=== PATIENT | female | born 1985 | race Caucasian/White ===

== ENCOUNTER 2018-10-17 07:59 | Inpatient (IN) | payer OTHER ==
[~2018-10-17] VITALS: Ht 167.6 cm; Wt 94.3 kg
[2018-10-17 08:46] VITALS: BP 177/105
[2018-10-17] MEDS ORDERED: PNV1TABL54 PO (08:52)
[2018-10-17] MEDS ORDERED: METHY250 PO (08:52)
[2018-10-17 08:59] LABS: BASOPHILS % (AUTO) 0.8 % (0.0-2.0); EOSINOPHILS % (AUTO) 2.1 % (1.0-6.0); HEMATOCRIT 29.8 % (36-46); HEMOGLOBIN 9.7 g/dL (12.0-16.0); LYMPHOCYTES # (AUTO) 2.1 K/uL (1.0-4.8); LYMPHOCYTES % (AUTO) 29.9 % (22.0-44.0); MEAN CORPUSCULAR HEMOGLOBIN 22.7 pg (26.0-34.0); MEAN CORPUSCULAR HGB CONC 32.7 G/dL (31.0-37.0); MEAN CORPUSCULAR VOLUME 70 fL (80-100); MONOCYTES # (AUTO) 0.5 K/uL (0.1-1.0); MONOCYTES % (AUTO) 6.6 % (2.0-9.0); NEUTROPHILS # (AUTO) 4.3 K/uL (1.8-7.7); NEUTROPHILS % (AUTO) 60.6 % (40.0-70.0); PLATELET COUNT (AUTO) 135 K/uL (150-450); RED BLOOD CELL COUNT(AUTO) 4.28 MIL/uL (4.00-5.20); RED CELL DISTRIBUTION WIDTH 18.3 % (11.5-14.5)
[2018-10-17 09:17] LABS: ALANINE AMINOTRANSFERASE 29 U/L (12-78); ALBUMIN 1.8 g/dL (3.4-5.0); ALKALINE PHOSPHATASE 160 U/L (46-116); ANION GAP 8 mmol/L (8-16); ASPARTATE AMINOTRANSFERASE 30 U/L (15-37); BILIRUBIN,TOTAL 0.3 mg/dL (0.1-1.0); CALCIUM, TOTAL 8.2 mg/dL (8.8-10.5); CARBON DIOXIDE 24 mmol/L (22-29); CHLORIDE 104 mmol/L (98-107); CREATININE 0.98 mg/dL (0.60-1.30); GLOMERULAR FILTR. RATE CALC > 60 mL/min (>60); GLUCOSE,RANDOM 76 mg/dL (70-110); SODIUM SERUM 136 mmol/L (136-145); TOTAL PROTEIN, SERUM 5.6 g/dL (6.4-8.2); UREA NITROGEN, BLOOD 17 mg/dL (7-18); URIC ACID 5.4 mg/dL (2.6-7.2)
[2018-10-17] MEDS ORDERED: RINGERS SOLUTION,LACTATED 1,000 ML IV PRN (10:05)
[2018-10-17] MEDS ORDERED: RINGERS SOLUTION,LACTATED 1,000 ML IV SCH (10:05)
[2018-10-17] MEDS ORDERED: OXYGEN THERAPY IH SCH ×4 (10:15→20:00)
[2018-10-17] MEDS ORDERED: METOCLOPRAMIDE HCL 5 MG/ML 2 ML VIAL IVP PRN (10:15)
[2018-10-17] MEDS ORDERED: CITRIC ACID/SODIUM CITRATE 30 ML SOLUTION UDCUP PO PRN (10:15)
[2018-10-17] MEDS ORDERED: BUPIVACAINE HCL/DEX-WATER/PF 0.75% 2 ML AMP ONE (11:55)
[2018-10-17] MEDS ORDERED: MORPHINE SULFATE/PF 0.5 MG/ML 10 ML AMP ONE (11:55)
[2018-10-17] MEDS ORDERED: ACETAMINOPHEN 1000 MG/ISO-OSM 100 ML IV ONE (11:55)
[2018-10-17] MEDS ORDERED: FentaNYL CITRATE-PF 100 MCG/2 ML VIAL ONE (11:55)
[2018-10-17] MEDS ORDERED: DiphenhydrAMINE HCL 50 MG/ML VIAL IVP PRN ×2 (12:45)
[2018-10-17] MEDS ORDERED: NALOXONE HCL 0.4 MG/ML VIAL IVP PRN (12:45)
[2018-10-17] MEDS ORDERED: MORPHINE SULFATE 10 MG/ML SYRINGE IVP PRN (12:45)
[2018-10-17] MEDS ORDERED: ONDANSETRON HCL 4 MG/2 ML VIAL IVP PRN ×2 (12:45)
[2018-10-17] MEDS ORDERED: FentaNYL CITRATE-PF 100 MCG/2 ML VIAL IVP PRN (12:45)
[2018-10-17] MEDS ORDERED: DEXAMETHASONE SOD PHOS 4 MG/ML VIAL IVP PRN (12:45)
[2018-10-17] MEDS ORDERED: NALBUPHINE HCL 10 MG/ML VIAL IVP PRN ×2 (12:45)
[2018-10-17] MEDS ORDERED: ACETAMINOPHEN/CODEINE 300-30 MG TABLET PO PRN (13:15)
[2018-10-17] MEDS ORDERED: LANOLIN 7 GM OINTMENT TP PRN (13:15)
[2018-10-17] MEDS ORDERED: CloNIDine HCL 0.1 MG TABLET PO ONE (17:15)
[2018-10-17] MEDS: DEXTROSE 5%-0.45% SODIUM CHL 1,000 ML IV SCH ×2 (17:45→21:45)
[2018-10-17] MEDS ORDERED: HydrALAZINE HCL 20 MG/ML VIAL IVP ONE ×2 (18:45→22:45)
[2018-10-17] MEDS ORDERED: FUROSEMIDE 20 MG/2 ML VIAL IVP ONE (18:45)
[2018-10-17] MEDS: NALBUPHINE HCL 10 MG/ML VIAL IVP PRN (20:33)
[2018-10-17] MEDS: ACETAMINOPHEN 1000 MG/ISO-OSM 100 ML IV SCH (20:43)
[2018-10-17 21:49] LABS: BASOPHILS % (AUTO) 0.4 % (0.0-2.0); EOSINOPHILS % (AUTO) 0.6 % (1.0-6.0); HEMATOCRIT 25.1 % (36-46); HEMOGLOBIN 8.1 g/dL (12.0-16.0); LYMPHOCYTES # (AUTO) 1.7 K/uL (1.0-4.8); LYMPHOCYTES % (AUTO) 16.6 % (22.0-44.0); MEAN CORPUSCULAR HEMOGLOBIN 22.8 pg (26.0-34.0); MEAN CORPUSCULAR HGB CONC 32.4 G/dL (31.0-37.0); MEAN CORPUSCULAR VOLUME 70 fL (80-100); MONOCYTES # (AUTO) 0.7 K/uL (0.1-1.0); MONOCYTES % (AUTO) 6.4 % (2.0-9.0); NEUTROPHILS # (AUTO) 7.9 K/uL (1.8-7.7); PLATELET COUNT (AUTO)-OB 116 K/uL (150-450); RED BLOOD CELL COUNT(AUTO) 3.57 MIL/uL (4.00-5.20); RED CELL DISTRIBUTION WIDTH 18.8 % (11.5-14.5)
[2018-10-17 21:58] LABS: ANION GAP 5 mmol/L (8-16); CALCIUM, TOTAL 7.6 mg/dL (8.8-10.5); CARBON DIOXIDE 27 mmol/L (22-29); CHLORIDE 103 mmol/L (98-107); CREATININE 0.96 mg/dL (0.60-1.30); GLOMERULAR FILTR. RATE CALC > 60 mL/min (>60); GLUCOSE,RANDOM 109 mg/dL (70-110); SODIUM SERUM 135 mmol/L (136-145); UREA NITROGEN, BLOOD 18 mg/dL (7-18)
[2018-10-17 22:11] LABS: ALANINE AMINOTRANSFERASE 26 U/L (12-78); ALBUMIN 1.6 g/dL (3.4-5.0); ALKALINE PHOSPHATASE 124 U/L (46-116); ASPARTATE AMINOTRANSFERASE 32 U/L (15-37); BILIRUBIN,TOTAL 0.2 mg/dL (0.1-1.0); TOTAL PROTEIN, SERUM 4.5 g/dL (6.4-8.2)
[2018-10-17 22:35] LABS: PLATELET MORPHOLOGY COMMENT LARGE PLTS PRESENT
[2018-10-17] MEDS ORDERED: MAGNESIUM SULFATE 4 GM/WATER 100 ML IV ONE (23:00)
[2018-10-17] MEDS ORDERED: CALCIUM GLUCONATE 100 MG/ML 10 ML IVP PRN (23:00)
[2018-10-18] MEDS: MAGNESIUM SULFATE 500 ML IV SCH ×3 (00:05→19:44)
[2018-10-18] MEDS: ACETAMINOPHEN 1000 MG/ISO-OSM 100 ML IV SCH (04:53)
[2018-10-18] MEDS: NALBUPHINE HCL 10 MG/ML VIAL IVP PRN (05:54)
[2018-10-18] MEDS ORDERED: HydrALAZINE HCL 20 MG/ML VIAL IVP ONE (06:30)
[2018-10-18 07:00] LABS: BASOPHILS % (AUTO) 0.2 % (0.0-2.0); EOSINOPHILS % (AUTO) 0.6 % (1.0-6.0); HEMATOCRIT 27.9 % (36-46); HEMOGLOBIN 8.8 g/dL (12.0-16.0); LYMPHOCYTES # (AUTO) 1.9 K/uL (1.0-4.8); LYMPHOCYTES % (AUTO) 15.2 % (22.0-44.0); MEAN CORPUSCULAR HEMOGLOBIN 22.4 pg (26.0-34.0); MEAN CORPUSCULAR HGB CONC 31.6 G/dL (31.0-37.0); MEAN CORPUSCULAR VOLUME 71 fL (80-100); MONOCYTES # (AUTO) 0.6 K/uL (0.1-1.0); MONOCYTES % (AUTO) 4.5 % (2.0-9.0); NEUTROPHILS # (AUTO) 9.7 K/uL (1.8-7.7); NEUTROPHILS % (AUTO) 79.5 % (40.0-70.0); PLATELET COUNT (AUTO)-OB 154 K/uL (150-450); RED BLOOD CELL COUNT(AUTO) 3.95 MIL/uL (4.00-5.20); RED CELL DISTRIBUTION WIDTH 18.9 % (11.5-14.5)
[2018-10-18 07:19] LABS: ALANINE AMINOTRANSFERASE 29 U/L (12-78); ALBUMIN 1.6 g/dL (3.4-5.0); ALKALINE PHOSPHATASE 140 U/L (46-116); ANION GAP 9 mmol/L (8-16); ASPARTATE AMINOTRANSFERASE 32 U/L (15-37); BILIRUBIN,TOTAL 0.3 mg/dL (0.1-1.0); CALCIUM, TOTAL 7.9 mg/dL (8.8-10.5); CARBON DIOXIDE 23 mmol/L (22-29); CHLORIDE 101 mmol/L (98-107); GLOMERULAR FILTR. RATE CALC > 60 mL/min (>60); GLUCOSE,RANDOM 99 mg/dL (70-110); POTASSIUM 4.1 mmol/L (3.5-5.1); SODIUM SERUM 133 mmol/L (136-145); TOTAL PROTEIN, SERUM 5.1 g/dL (6.4-8.2); UREA NITROGEN, BLOOD 14 mg/dL (7-18); URIC ACID 4.9 mg/dL (2.6-7.2)
[2018-10-18] MEDS: ACETAMINOPHEN/CODEINE 300-30 MG TABLET PO PRN ×2 (08:06→17:00)
[2018-10-18] MEDS: DEXTROSE 5%-0.45% SODIUM CHL 1,000 ML IV SCH (08:27)
[2018-10-18] MEDS: MAGNESIUM HYDROXIDE SUSPENSION 30 ML UDCUP PO SCH (09:00)
[2018-10-18] MEDS ORDERED: NIFEdipine 10 MG CAPSULE PO SCH (12:00)
[2018-10-18] MEDS ORDERED: OxyCODONE HCL/ACETAMINOPHEN 5-325 MG TABLET PO PRN (18:45)
[2018-10-18] MEDS: LABETALOL HCL 100 MG TABLET PO SCH (20:58)
[2018-10-18] MEDS ORDERED: DEXTROSE 5%-0.45% SODIUM CHL 1,000 ML IV ONE (21:30)
[2018-10-19] MEDS: IBUPROFEN 800 MG TABLET PO SCH ×4 (00:04→21:07)
[2018-10-19] MEDS ORDERED: 0.9% SODIUM CHLORIDE 10 ML VIAL IVP ONE (04:12)
[2018-10-19] MEDS ORDERED: OXYTOCIN 10 UNITS/ML VIAL IM ONE (04:12)
[2018-10-19] MEDS ORDERED: EPHEDrine SULFATE 50 MG/ML VIAL IM ONE (04:12)
[2018-10-19] MEDS: OxyCODONE HCL/ACETAMINOPHEN 5-325 MG TABLET PO PRN ×3 (04:34→18:29)
[2018-10-19 06:27] LABS: BASOPHILS % (AUTO) 0.2 % (0.0-2.0); HEMATOCRIT 25.2 % (36-46); HEMOGLOBIN 8.2 g/dL (12.0-16.0); LYMPHOCYTES # (AUTO) 1.6 K/uL (1.0-4.8); LYMPHOCYTES % (AUTO) 15.3 % (22.0-44.0); MEAN CORPUSCULAR HEMOGLOBIN 22.8 pg (26.0-34.0); MEAN CORPUSCULAR HGB CONC 32.7 G/dL (31.0-37.0); MEAN CORPUSCULAR VOLUME 70 fL (80-100); MONOCYTES # (AUTO) 0.7 K/uL (0.1-1.0); MONOCYTES % (AUTO) 6.9 % (2.0-9.0); NEUTROPHILS # (AUTO) 7.7 K/uL (1.8-7.7); NEUTROPHILS % (AUTO) 73.6 % (40.0-70.0); PLATELET COUNT (AUTO)-OB 144 K/uL (150-450); RED BLOOD CELL COUNT(AUTO) 3.61 MIL/uL (4.00-5.20); RED CELL DISTRIBUTION WIDTH 19.1 % (11.5-14.5)
[2018-10-19 07:03] LABS: ALANINE AMINOTRANSFERASE 22 U/L (12-78); ALBUMIN 1.4 g/dL (3.4-5.0); ALKALINE PHOSPHATASE 128 U/L (46-116); ANION GAP 7 mmol/L (8-16); ASPARTATE AMINOTRANSFERASE 27 U/L (15-37); BILIRUBIN,TOTAL 0.2 mg/dL (0.1-1.0); CARBON DIOXIDE 25 mmol/L (22-29); CHLORIDE 99 mmol/L (98-107); GLOMERULAR FILTR. RATE CALC > 60 mL/min (>60); GLUCOSE,RANDOM 102 mg/dL (70-110); SODIUM SERUM 131 mmol/L (136-145); TOTAL PROTEIN, SERUM 4.7 g/dL (6.4-8.2); UREA NITROGEN, BLOOD 10 mg/dL (7-18); URIC ACID 4.9 mg/dL (2.6-7.2)
[2018-10-19] MEDS: SOD FERRIC GLUC COMPLX/SUCROSE 125 MG in SODIUM CHLORIDE 0.9% 100 ML IV SCH (08:46)
[2018-10-19] MEDS: LABETALOL HCL 100 MG TABLET PO SCH ×2 (09:09→21:07)
[2018-10-19] MEDS: MAGNESIUM HYDROXIDE SUSPENSION 30 ML UDCUP PO SCH (21:07)
[2018-10-20] MEDS: OxyCODONE HCL/ACETAMINOPHEN 5-325 MG TABLET PO PRN (00:46)
[2018-10-20] MEDS: IBUPROFEN 800 MG TABLET PO SCH ×5 (04:38→21:14)
[2018-10-20 07:04] LABS: BASOPHILS % (AUTO) 0.4 % (0.0-2.0); HEMATOCRIT 25.3 % (36-46); HEMOGLOBIN 8.4 g/dL (12.0-16.0); LYMPHOCYTES # (AUTO) 2.1 K/uL (1.0-4.8); LYMPHOCYTES % (AUTO) 19.9 % (22.0-44.0); MEAN CORPUSCULAR HEMOGLOBIN 23.3 pg (26.0-34.0); MEAN CORPUSCULAR HGB CONC 33.4 G/dL (31.0-37.0); MEAN CORPUSCULAR VOLUME 70 fL (80-100); MONOCYTES # (AUTO) 0.7 K/uL (0.1-1.0); MONOCYTES % (AUTO) 6.2 % (2.0-9.0); NEUTROPHILS # (AUTO) 7.4 K/uL (1.8-7.7); NEUTROPHILS % (AUTO) 68.5 % (40.0-70.0); PLATELET COUNT (AUTO)-OB 187 K/uL (150-450); RED BLOOD CELL COUNT(AUTO) 3.63 MIL/uL (4.00-5.20)
[2018-10-20] MEDS ORDERED: RINGERS SOLUTION,LACTATED 1,000 ML IV ONE (07:45)
[2018-10-20] MEDS: SOD FERRIC GLUC COMPLX/SUCROSE 125 MG in SODIUM CHLORIDE 0.9% 100 ML IV SCH (08:13)
[2018-10-20] MEDS ORDERED: LABETALOL HCL 200 MG TABLET PO SCH (09:00)
[2018-10-20] MEDS ORDERED: METHYLDOPA 250 MG TABLET PO ONE ×4 (13:15→21:00)
[2018-10-20] MEDS: MAGNESIUM HYDROXIDE SUSPENSION 30 ML UDCUP PO SCH (20:50)
[2018-10-21] MEDS: IBUPROFEN 800 MG TABLET PO SCH (03:46)
[2018-10-21] MEDS ORDERED: METHYLDOPA 250 MG TABLET PO ONE (05:00)
[2018-10-21] MEDS ORDERED: IBUP-2071 PO (07:37)
[2018-10-21] MEDS ORDERED: METHY250 PO (07:40)
[2018-10-21] MEDS ORDERED: ACET1TAB12 PO (07:41)
== END 2018-10-21 09:20 | disposition home or self-care (01) | DRG 788 ==
LOC: 4S 07:59 → OBSVTOIN 10:12 → 4S 14:30
PROVIDERS: ADMIT Obstetrics & Gynecology; ATTEND Obstetrics & Gynecology
PROC: 10D00Z1 Extraction of Products of Conception, Low, Open Approach (ICD-10-PCS; principal; 2018-10-17)
DX: O11.4 Pre-existing hypertension with pre-eclampsia, complicating childbirth (principal); Z3A.40 40 weeks gestation of pregnancy; Z37.0 Single live birth
CPT/HCPCS: 83735; 84550; 86850; 86900; 86901; 87081; J0131; J0360; J0690; J1940; J2270; J2274; J2300; J2405; J2590; J2765; J2916; J3010; J3475; J3490; J7050; J7120